=== PATIENT | female | born 1960 | race Caucasian/White ===

== ENCOUNTER 2021-03-11 18:39 | Emergency (ER) | payer MEDICARE, MEDICAID, SELFPAY ==
[2021-03-11] VITALS (28 sets, daily range): BP systolic 116–138; BP diastolic 61–83; PULSE 96; RESP 20; TEMP 36.9; O2SAT 94–100
--- NOTE | ~2021-03-11 | XR_ITS ---
EXAMINATION: XR chest 1V portable DATE: 03/11/2021 19:39 INDICATION: COVID-19 pneumonia. Nausea. TECHNIQUE: A single frontal view of the chest was obtained. COMPARISON: None. FINDINGS: There are airspace opacities in the mid and lower lung zones with a lower lung predominance . No pleural effusion or pneumothorax. The heart size is normal. IMPRESSION: 1. Airspace opacities in the mid and lower lung zones with a lower lung predominance, consistent with COVID-19 pneumonia. Reviewed, dictated and finalized at location A. IMPRESSION: 1. Airspace opacities in the mid and lower lung zones with a lower lung predomi nance, consistent with COVID-19 pneumonia.
[2021-03-11 19:14] LABS: Basophils Percent Auto 0.3 % (0.2-1.2); Hematocrit 38.6 % (37.0-47.0); Hemoglobin 12.7 g/dL (12.0-15.0); Immature Granulocyte Absolute 0.02 K/mm3 (0.00-0.031); Immature Granulocyte Percent A 0.6 % (0-0.5); Lymphocytes Absolute Auto 0.54 K/mm3 (0.9-3.2); Lymphocytes Percent Auto 15.7 % (18.3-44.2); Mean Corpuscular HGB Conc 32.9 g/dl (32-36); Mean Corpuscular Hemoglobin 28.2 pg (26-34); Mean Corpuscular Volume 85.6 fl (80-100); Mean Platelet Volume 8.8 fl (7.4-10.4); Monocytes Absolute Auto 0.1 K/mm3 (0.1-0.6); Monocytes Percent Auto 3.5 % (2.6-8.5); Neutrophils Absolute Auto 2.7 K/mm3 (1.3-6.7); Neutrophils Percent Auto 79.9 % (45.5-73.1); Platelet Count Result 313 k/mm3 (150-375); Red Blood Count 4.51 M/mm3 (4.2-5.4); Red Cell Distribution Width 13.2 % (11.5-14.5); White Blood Count 3.4 K/mm3 (4.5-10.0)
[2021-03-11 19:25] LABS: Alanine Aminotransferase 23 U/L (4-35); Albumin Level 3.7 g/dL (3.5-5.1); Alkaline Phosphatase 100 U/L (38-126); Anion Gap 8 mmol/L (8-16); Aspartate Amino Transferase 31 U/L (14-36); Bilirubin,Total 0.4 mg/dL (0.2-1.3); Blood Urea Nitrogen 8 mg/dL (7-17); Calcium 7.9 mg/dL (8.4-10.2); Carbon Dioxide 26 mmol/L (22-30); Chloride 100 mmol/L (98-107); Estimated CRCL calculation 103 ml/min; Estimated Glomerular Filt Rate > 60; Glucose 129 mg/dL (65-110); Sodium 134 mmol/L (137-145)
[2021-03-11 21:30] LABS: Add Urine Microscopic? YES; Appearance Urine Clear (Clear); Bacteria Urine 4+ /hpf; Bilirubin Urine Negative (Negative); Blood Urine 1+ (Negative); Color Urine Yellow (Yellow); Glucose Urine UA Negative (Negative); Ketones Urine Trace mg/dL (Negative); Leukocyte Esterase Ur 1+ LEU/UL (Negative); Mucus Urine Rare /lpf; Nitrate Urine Positive (Negative); Protein Urine Negative (Negative); RBC Urine 0-2 /hpf (0-2); Specific Grav Ur 1.011 (1.001-1.035); Squamous Epithelial Cell Urine Rare /hpf (Few); Urobilinogen Urine Negative mg/dL (<2.0); WBC Urine 31-50 /hpf
--- NOTE | 2021-03-11 22:59 | ED.FEVER ---
HPI - Fever General Chief Complaint: Fever Stated Complaint: COVID+ FEVER, NOT FEELING WELL Time Seen by Provider: 03/11/21 20:06 History of Present Illness HPI Narrative: Patient is a 60-year-old female who presents ER with symptoms of fatigue. Patient diagnosed with COVID-19 11 days ago. She developed fever today which is new for her. She still has persistent cough no shortness of breath. Denies chest pain or chest pressure. Due to new fever she opted to come in to be evaluated further. Patient has had poor appetite but no loss of taste or smell. Mild nausea but no vomiting. Patient reports last week she had been on a Z-[place] for possible pneumonia prescribed by PCP. Related Data Allergies Allergy/AdvReac Type Severity Reaction Status Date / Time MEPERIDINE HCL Allergy Uncoded 02/10/11 19:21 Review of Systems Review of Systems: All systems reviewed & are unremarkable except as noted in HPI and below Constitutional: Constitutional: Reports chills, Reports fatigue and Reports fever(s) ENT: Denies nasal congestion and Denies sore throat Cardiovascular: Cardiovascular: Denies chest pain, Denies rapid heart rate and Denies radiating jaw, neck or arm pain Respiratory: Respiratory: Reports cough, Denies dyspnea and Denies wheezing Gastrointestinal: Gastrointestinal: Denies abdominal pain, Reports nausea and Denies vomiting Genitourinary: Genitourinary: Denies nocturia, Denies dysuria and Denies flank pain PMFSH Past Medical History Medical History (Updated 03/12/21 @ 02:30 by Dell Joaquin MD) Depression Surgical History Surgical History (Updated 03/12/21 @ 02:30 by Dell Joaquin MD) History of Social History Social History Gender identity (if verbalized by the patient): Female Exam Narrative: GENERAL: Fatigued-appearing, well-nourished, and in no acute distress. HEAD: Normocephalic, atraumatic. CHEST: Clear to auscultation. No respiratory distress. HEART: Regular rate and rhythm. Normal peripheral pulses. ABDOMEN: Soft, nontender, nondistended. EXTREMITIES: Normal range of motion. No edema. SKIN: Warm, dry, no rash. NEURO: Alert and oriented x3. PSYCH: Normal mood and affect. Course [facility] NURSE PRACTITIONER/PA Physician Supervision Patient informed of results. Discharge home. Vital Signs Vital signs: Vital Signs Temperature 98.4 F 03/11/21 18:41 Pulse Rate 96 03/11/21 18:41 Respiratory Rate 20 03/11/21 18:41 Blood Pressure 121/61 03/11/21 18:41 Pulse Oximetry 96 03/11/21 18:41 Temperature 98.4 F 03/11/21 18:41 Pulse Rate 96 03/11/21 18:41 Respiratory Rate 20 03/11/21 18:41 Blood Pressure 134/81 03/11/21 23:16 Pulse Oximetry 97 03/11/21 23:01 MDM - Fever Lab Data Result diagrams: 03/11/21 18:56 03/11/21 18:56 Labs: Lab Results 03/11/21 03/11/21 03/11/21 Range/Units 18:56 18:56 21:13 WBC 3.4 L (4.5-10.0) K/mm3 RBC 4.51 (4.2-5.4) M/mm3 Hgb 12.7 (12.0-15.0) g/dL Hct 38.6 (37.0-47.0) % MCV 85.6 (80-100) fl MCH 28.2 (26-34) pg MCHC 32.9 (32-36) g/dl RDW 13.2 (11.5-14.5) % Plt Count 313 (150-375) k/mm3 MPV 8.8 (7.4-10.4) fl Immature Gran % (Auto) 0.6 H (0-0.5) % Neut % (Auto) 79.9 H (45.5-73.1) % Lymph % (Auto) 15.7 L (18.3-44.2) % Piute % (Auto) 3.5 (2.6-8.5) % Eos % (Auto) 0.0 (0-4.4) % Baso % (Auto) 0.3 (0.2-1.2) % Lymph # (Auto) 0.54 L (0.9-3.2) K/mm3 [place] # (Auto) 0.1 (0.1-0.6) K/mm3 Eos # (Auto) 0.0 (0-0.3) K/mm3 Baso # (Auto) 0.0 (0.0-0.1) K/mm3 Abs Immat Gran (auto) 0.02 (0.00-0.031) K/mm3 Absolute Neuts (auto) 2.7 (1.3-6.7) K/mm3 Absolute Nucleated RBC 0.0 (0.0-0.012) K/mm3 Nucleated RBC % 0.0 (0.0-0.2) % Sodium 134 L (137-145) mmol/L Potassium 3.0 L (3.4-5.0) mmol/L Chloride 100 (98-107) mmol/L Carbon Dioxide 26 (22-30) mmol/L Anion Gap 8 (8-16) mmol/L
[2021-03-11] MEDS: CEPHALEXIN 500 MG CAPSULE PO (23:20)
== END 2021-03-11 23:22 | disposition home or self-care (01) ==
PROVIDERS: Emergency Medicine; Emergency Provider Emergency Medicine; PCP Nurse Practitioner Psychiatric/Mental Health
DX: N39.0 Urinary tract infection, site not specified (principal); U07.1 COVID-19
CPT/HCPCS: 36415; 71045; 80053; 81001; 85025; 87086; 87088; 99283; A9270